=== PATIENT | male | born 1960 | race Caucasian/White ===

== ENCOUNTER → 2018-05-01 | Outpatient (CLI) | payer BC ==
--- NOTE | 2018-05-01 08:57 | US ---
EXAMINATION TYPE: US kidneys/renal and bladder DATE OF EXAM: 05/01/2018 COMPARISON: NONE CLINICAL HISTORY: N28.1 left kidney cyst; prior renal stone per patient EXAM MEASUREMENTS: Right Kidney: 11.4 x 9.5 x 6.5 cm Left Kidney: 11.5 x 5.8 x 4.7 cm Post Void Residual Volume: 11.3 mL Right Kidney: multiple renal cysts throughout kidney with largest at upper cortex exophytic in appear ance = 1.8 x 2.0 x 2.0cm; microcalcifications noted in mid pole on image #37 and #38. Left Kidney: located in pelvis and per patient history; multiple renal cysts with largest simple at l ateral cortex = 9.0 x 5.8 x 5.9cm; parapelvic cyst is noted = 2.2 x 2.6 x 2.1cm; hyperechoic (calcif ied appearing wall with posterior shadowing) mid pole at possible cystic area on images #62 through # 65. Bladder: wnl Bilateral Jets seen: yes Normal Post Void Residual: yes Incidental finding of round hyperechoic mass in right liver lobe = 0.7 x 0.8 x 0.7cm. IMPRESSION: 1. Left pelvic kidney with multiple simple appearing renal cysts the largest measuring up to 9.0 cm. 2. Simple appearing right renal cysts. 3. Incidentally identified subcentimeter hyperechoic hepatic lesion. In a patient with no underlying hepatocellular disease this most commonly represents a hemangioma but could be fully characterized wi th dynamic enhanced CT or MR abdomen. 4. Punctate nonobstructing 1 to 2 mm midpole right renal calculi and calcification of the left kidney layering within a cyst dependently. Characteristics of this cysts appear overall benign.
== END | disposition home or self-care (01) ==
LOC: RADUSWWP 06:59
PROVIDERS: ATTEND Family Medicine
DX: N28.1 Cyst of kidney, acquired (principal); N28.89 Other specified disorders of kidney and ureter; N20.0 Calculus of kidney
CPT/HCPCS: 76770

== ENCOUNTER → 2019-04-29 | Outpatient (CLI) | payer BC ==
[2019-04-29 09:04] LABS: African American GFR (CKD) >90 (>60 ml/min/1.73 sqM); Blood Urea Nitrogen 18 mg/dL (9-20)
--- NOTE | 2019-04-29 19:39 | CT ---
EXAMINATION TYPE: CT abdomen w con DATE OF EXAM: 04/29/2019 COMPARISON: None INDICATION: Cysts on liver and kidneys DLP: 939 mGycm, Automated exposure control for dose reduction was used. CONTRAST: 100 mL of Isovue 300. Study performed with Oral Contrast TECHNIQUE: Axial images were obtained from above the diaphragm to the pubic rami in the axial plane a t 5 mm thick sections. Reconstructed images are reviewed on the computer in the coronal plane. FINDINGS: Limited CT sections are obtained the lung bases. The lung bases are clear. CT ABDOMEN: Liver: There are multiple scattered hypodensities within the liver. Some are too small to classify. T he larger hypodensities measure approximately 10 Hounsfield units and can be compatible with cysts ba sed on the CT. Spleen: Normal Pancreas: Normal Adrenal glands: The adrenal glands are normal. Gallbladder: Normal Kidneys: Left kidney is within the left hemipelvis as a 6.2 cm cyst measuring 20 Hounsfield units. Mo nitoring is recommended. Couple small cortical cyst may be in the superior pole left kidney. Right kidney: No masses are evident. No hydronephrosis is present. On the right kidney there is an anterior superior 1.9 cm cyst measuring 20 Hounsfield units. To cysts or on the posterior lateral rig ht kidney measuring 1.9 cm. The second measures 1.4 cm but has a Hounsfield unit measurement of 28. T his could be a proteinaceous cyst. This is not a simple cyst monitoring is recommended. At the [employer] ior inferior pole is a 2.0 cm cyst again with Hounsfield unit measurement of 21 recommend monitoring. A 1.6 cm cyst at the inferior pole measures 16 Hounsfield units. Aorta: Normal Inferior vena cava: Normal. Partial CT PELVIS: Loops of bowel within the abdomen and pelvis are normal. There are loops of bowel which are incom pletely distended or lack oral contrast limiting their evaluation. Appendix: Not clearly identified. No suspicious tubular structures or inflammatory changes are eviden t. Urinary bladder: Normal. Genitourinary structures: Prostate is out of the [id number] Osseous structures: No suspicious lytic or sclerotic lesions. IMPRESSIONS: 1. Multiple hypodensities within the liver and the bilateral kidneys, majority of which can be lisa tible with simple cysts. There are couple of cysts on the bilateral kidneys which have increased Houn sfield units and cannot be classified as simple cysts. Monitoring of these cysts is recommended. Note the left kidney is within the left hemipelvis.
== END | disposition home or self-care (01) ==
LOC: RADCTMAIN 07:50
PROVIDERS: ATTEND Family Medicine
DX: N28.1 Cyst of kidney, acquired (principal); K76.89 Other specified diseases of liver
CPT/HCPCS: 82565; 84520; 74160; 36415; Q9967

== ENCOUNTER → 2019-11-18 | Outpatient (CLI) | payer BC ==
--- NOTE | 2019-11-18 09:05 | CT ---
EXAMINATION TYPE: CT abdomen w con DATE OF EXAM: 11/18/2019 COMPARISON: CT abdomen April 29, 2019 HISTORY: Renal cyst CT DLP: 1153 mGycm, Automated Exposure Control for Dose Reduction was Utilized. CONTRAST: CT scan of the abdomen is performed with oral and with IV Contrast, patient injected with 100 ml mL o f Isovue 300. FINDINGS: LUNG BASES: No significant abnormality is appreciated. LIVER/GB: Stable simple-appearing thin-walled cysts throughout the liver most prominent left hepatic dome with largest 1.4 cm lesion near gallbladder fossa. PANCREAS: No significant abnormality is seen. SPLEEN: No significant abnormality is seen. ADRENALS: In retrospect Stable 1.5 x 1.0 cm small left adrenal mass axial image 26 favor benign etiol ogy. KIDNEYS: Left kidney not present in [place] fossa. Right kidney shows cortical medullary uptake and ex cretion without hydronephrosis seen bilaterally. There are scattered simple-appearing thin-walled cys ts throughout the right kidney. There are additional subcentimeter hypodense lesions are too small to further characterize for presumed or favored benign. A few lesions are slightly hyperdense without e nhancement represents 1.8 cm partially exophytic mid right renal lesion axial image 31 favoring prote inaceous cyst. There is additional cystic lesion with dependent curvilinear calcium or milk of calciu m axial image 30 benign. Pelvic positioning of left kidney redemonstrated with large exophytic thin-walled cyst along the left lower aspect extending inferiorly measuring 7.5 x 6.4 cm axial image 70. Craniocaudal dimension annabel mated around 9 cm. This causes mass effect on the left anterior aspect of bladder wall similar to nadiya or. There are additional subcentimeter hypodense lesions along with the right superior exophytic 2.6 cm thin-walled cyst on image 58 redemonstrated. Satisfactory corticomedullary uptake and excretion wi thout hydronephrosis. Bladder within normal limits. BOWEL: Diverticula throughout the sigmoid colon which is deviated to right of midline due to pelvic l eft kidney. And contrast reaches level of right colon. No suspicious small or large bowel dilatation is present. PROSTATE/SEMINAL VESICLES: Visualized portion prostate gland shows central calcifications and normal size. LYMPH NODES: No greater than 1cm abdominal lymph nodes are appreciated. OSSEOUS STRUCTURES: Multilevel spurring in the visualized thoracic spine redemonstrated. OTHER: No significant additional abnormality is seen. IMPRESSION: Stable Bosniak type I and type II cysts in the bilateral kidneys. Bosniak 2F cyst exophyt ically lower pole left kidney left aspect due to size. Mass effect on bladder noted. Mass effect fro m pelvic left kidney also noted on sigmoid colon. No suspicious new or enlarging lesions are present.
== END | disposition home or self-care (01) ==
LOC: RADCTMAIN 07:05
PROVIDERS: ATTEND Family Medicine
DX: N28.1 Cyst of kidney, acquired (principal); N28.89 Other specified disorders of kidney and ureter
CPT/HCPCS: 74160; Q9967

== ENCOUNTER 2021-01-03 11:39 | Day surgery (SDC) | payer BC ==
[2021-01-01 13:24] VITALS: BMI 25.8
[~2021-01-03 11:39] MED LIST: LACTATED RINGERS 1,000 ML IV SCH; LIDOCAINE 1% (10MG/ML) FOR IV START INTRADERMA PRN
[2021-01-03 12:25] VITALS: TEMP 97.7
[2021-01-03] MEDS ORDERED: PROPOFOL 10 MG/ML 20 ML VIAL IV ONE (13:24)
--- NOTE | 2021-01-03 13:39 | P.PCN ---
Date of Procedure: 01/03/21 Procedure(s) Performed: BRIEF HISTORY: Patient is a 60-year-old pleasant white male scheduled for an elective colonoscopy as a part of evaluation of history of ulcerative colitis. Has been complaining of intermittent rectal discomfort secondary to anal fissure. PROCEDURE PERFORMED: Colonoscopy with random biopsies. PREOPERATIVE DIAGNOSIS: History of ulcerative colitis. IV sedation per Anesthesia. PROCEDURE: After informed consent was obtained, the patient, was brought into the endoscopy unit. IV sedation was administered by Anesthesia under continuous monitoring. Digital rectal examination was normal. Initially the Olympus CF-160 flexible video colonoscope was then inserted in the rectum, gradually advanced into the cecum without any difficulty. Careful examination was performed as the scope was gradually being withdrawn. Ileocecal valve and the appendiceal orifice were visualized and appeared normal. Prep was excellent. Mucosa of the cecum, ascending colon, transverse colon, descending colon, sigmoid colon, and rectum appeared normal. Random biopsies were done at every 10 cm intervals from cecum to rectum. Diffuse Scattered diverticulosis noted. Retroflexion was performed in the rectum and no lesions were seen. The patient tolerated the procedure well. IMPRESSION: Normal-appearing colon from rectum to cecum with no evidence of active colitis or colorectal neoplasia . Scattered diffuse diverticulosis RECOMMENDATIONS: Findings of this examination were discussed with the patient as well as a family. He was advised to follow with the biopsy results. If the biopsy does not show any evidence of significant have a repeat colonoscopy in 2 years.
[2021-01-03 14:06] VITALS: BP 113/68; PULSE 73; RESP 18
== END 2021-01-03 14:20 | disposition home or self-care (01) ==
LOC: ORWHC2ENDO 11:39
PROVIDERS: ATTEND Internal Medicine Gastroenterology
DX: K51.90 Ulcerative colitis, unspecified, without complications (principal); K57.30 Diverticulosis of large intestine without perforation or abscess without bleeding; K60.2 Anal fissure, unspecified; I10 Essential (primary) hypertension; E78.5 Hyperlipidemia, unspecified; J45.909 Unspecified asthma, uncomplicated; Z87.891 Personal history of nicotine dependence; Z79.51 Long term (current) use of inhaled steroids; Z79.899 Other long term (current) drug therapy
CPT/HCPCS: 88305; 45380; J2704

== ENCOUNTER → 2021-12-06 | Outpatient (CLI) | payer BC ==
--- NOTE | 2021-12-06 10:43 | US ---
Hydronephrosis. EXAMINATION TYPE: US abdomen complete DATE OF EXAM: 12/06/2021 COMPARISON: Ultrasound kidneys 11/18/2019 CLINICAL HISTORY: 61-year-old male R10.9 Abdominal Pain. Recent hernia surgery. Left pelvic kidney. TECHNIQUE: Multiple sonographic images of the abdomen are obtained. FINDINGS: EXAM MEASUREMENTS: Liver Length: 16.1 cm Gallbladder Wall: 0.2 cm CBD: 0.4 cm Spleen: 8.2 cm Right Kidney: 10.9 x 5.9 x 6.4 cm Left Kidney: 11.7 x 4.5 x 4.4 cm Smooth Plater notes: Suboptimal due to overlying bowel gas Pancreas: Obscured by bowel gas Liver: Multiple cysts seen throughout liver. Largest on right adjacent to GB = 1.5 x 1.8 x 1.4 cm. Largest on left - 2.0 x 1.9 x 1.6 cm. Gallbladder: Two echogenic foci seen along the posterior wall, 1= 0.3 x 0.4 cm. 2= 0.5 x 0.5 cm. Evidence for sonographic Lopez's sign: neg CBD: wnl Spleen: wnl Right Kidney: multiple cysts seen. Largest = 1.8 x 1.6 x 1.6 cm. Echogenic focus= 1.0 cm at the u pper pole. No hydronephrosis. Left Kidney: Left pelvic kidney. Multiple cysts seen. Possible pelvic cyst vs dilated renal pelvis - 2.0 x 1.9 x 1.6 cm. Large lower pole cyst = 9.7 x 7.6 x 4.8 cm. 8 mm lower pole calculus. Upper IVC: wnl Abd Aorta: Limited visualization due to bowel gas IMPRESSION: 1. A few hepatic cysts, largest measuring 2.0 cm. 2. A couple mural based foci along the posterior gallbladder wall measuring 5 mm and 4 mm, suspected gallbladder wall polyps. These can be reassessed with a six-month follow-up gallbladder ultrasound. 3. Bilateral renal cysts measuring up to 1.8 cm on the right. The left kidney is a pelvic kidney with the largest cyst measuring 9.7 cm. 4. The left pelvic kidney as either an extrarenal pelvis or a parapelvic cyst measuring 2.0 cm. No ca lyceal dilatation to clearly indicate hydronephrosis. 5. At least one nonobstructive calculus in each kidney measuring up to 8 mm on the left and 1.0 cm on the right.
== END | disposition home or self-care (01) ==
LOC: RADUSWWP 09:35
PROVIDERS: ATTEND Family Medicine
DX: K76.89 Other specified diseases of liver (principal); N28.1 Cyst of kidney, acquired; N20.0 Calculus of kidney
CPT/HCPCS: 76700

== ENCOUNTER 2023-08-08 08:36 | Day surgery (SDC) | payer BC ==
[2023-08-06 10:09] VITALS: BMI 25.8
[2023-08-08 09:13] VITALS: RESP 16; TEMP 97.1
[2023-08-08] MEDS ORDERED: PROPOFOL 10 MG/ML 20 ML VIAL IV ONE (09:49)
--- NOTE | 2023-08-08 10:04 | P.PCN ---
Date of Procedure: 08/08/23 Procedure(s) Performed: BRIEF HISTORY: Patient is a 63-year-old pleasant white male scheduled for an elective colonoscopy as a part of surveillance of long-standing history of ulcerative colitis. He is in clinical remission. Lately has been complaining of intermittent rectal bleeding and rectal discomfort. PROCEDURE PERFORMED: Colonoscopy random biopsy. PREOPERATIVE DIAGNOSIS: Long-standing history of ulcerative colitis. IV sedation per Anesthesia. PROCEDURE: After informed consent was obtained, the patient, was brought into the endoscopy unit. IV sedation was administered by Anesthesia under continuous monitoring. Digital rectal examination was normal. Initially the Olympus CF-160 flexible video colonoscope was then inserted in the rectum, gradually advanced into the cecum without any difficulty. Careful examination was performed as the scope was gradually being withdrawn. Ileocecal valve and the appendiceal orifice were visualized and appeared normal. Prep was excellent. Mucosa of the cecum, ascending colon, transverse colon, descending colon, sigmoid colon, and rectum appeared normal. Scattered diffuse diverticulosis. Biopsies were done from the cecum to rectum at every 10 cm into well to rule out dysplasia. Retroflexion was performed in the rectum and no lesions were seen. The patient tolerated the procedure well. IMPRESSION: Normal-appearing colon from rectum to cecum with no evidence of colorectal neoplasia. Scattered diffuse diverticulosis. RECOMMENDATIONS: Findings of this examination were discussed with the patient as well as his family. He was advised to follow with the biopsy results. If the biopsies do not show any evidence of dysplasia he can have a repeat colonoscopy in 2 years..
[2023-08-08 10:42] VITALS: BP 120/78; PULSE 58
== END 2023-08-08 10:36 | disposition home or self-care (01) ==
LOC: ORWHC2ENDO 08:36
PROVIDERS: ATTEND Internal Medicine Gastroenterology
DX: K51.911 Ulcerative colitis, unspecified with rectal bleeding (principal); I10 Essential (primary) hypertension; E78.5 Hyperlipidemia, unspecified; J45.909 Unspecified asthma, uncomplicated; H91.90 Unspecified hearing loss, unspecified ear; Z79.51 Long term (current) use of inhaled steroids; Z79.899 Other long term (current) drug therapy
CPT/HCPCS: 88305; 45380; J2704